=== PATIENT | female | born 1990 | race Caucasian/White ===

== ENCOUNTER 2021-04-01 11:10 | Emergency (ER) | payer OTHER ==
[~2021-04-01] VITALS: Ht 177.8 cm; Wt 65.8 kg
[2021-04-01] MEDS ORDERED: AMOX-CLAV 875-1 EACH PO (13:52)
[2021-04-01] MEDS ORDERED: KETO10TA2 PO (13:52)
== END 2021-04-01 14:01 | disposition home or self-care (01) ==
LOC: ER 11:10
DX: L03.116 Cellulitis of left lower limb (principal)